=== PATIENT | male | born 1960 | race Caucasian/White ===

== ENCOUNTER 2017-09-20 08:00 | Day surgery (SDC) | payer BC ==
[~2017-09-20 08:00] MED LIST: CEFAZOLIN 2 GM/50 ML (PMX) 50 ML (FOR WT < 120 KG) IVPB; LACTATED RINGER'S 1,000 ML IV
[2017-09-20] MEDS ORDERED: PROPOFOL 20 ML (09:25)
[2017-09-20] MEDS ORDERED: LIDOCAINE 2% (SDV) 5 ML INJ (09:25)
[2017-09-20] MEDS ORDERED: CEFAZOLIN 1 GM INJ (09:25)
[2017-09-20] MEDS ORDERED: ONDANSETRON 4 MG INJ (09:25)
[2017-09-20] MEDS ORDERED: BUPIVACAINE 0.75%/DEXT (SPINAL) 2 ML INJ (09:26)
[2017-09-20] MEDS ORDERED: SOD CHLORIDE 0.9% 1,000 ML IV (10:05)
[2017-09-20] MEDS ORDERED: ROPIVACAINE 0.5 % 30 ML VIAL (10:09)
[2017-09-20] MEDS ORDERED: SENNA/DOCUSATE NA (8.6MG/50MG) TAB PO (10:30)
[2017-09-20] MEDS ORDERED: DOCUSATE SODIUM 100 MG CAP PO (10:30)
[2017-09-20] MEDS ORDERED: EPHEDrine SULFATE 50 MG/5 ML SYG IV (10:30)
[2017-09-20] MEDS ORDERED: ASPIRIN (EC) 325 MG TAB PO (10:30)
[2017-09-20] MEDS ORDERED: MAGNESIUM HYDROXIDE 30ML CUP PO (10:30)
[2017-09-20] MEDS ORDERED: METOCLOPRAMIDE 10 MG INJ IV (10:30)
[2017-09-20] MEDS ORDERED: BETHANECHOL 25 MG TAB PO (10:30)
[2017-09-20] MEDS ORDERED: BISACODYL 10 MG SUPP PR (10:30)
[2017-09-20] MEDS ORDERED: LABETALOL HCL 20MG INJ IV (10:30)
[2017-09-20] MEDS ORDERED: ONDANSETRON 4 MG INJ IV ×2 (10:30)
[2017-09-20] MEDS ORDERED: FENTAnyl 50 MCG/ML VIAL IV ×3 (10:30)
[2017-09-20] MEDS ORDERED: CEFAZOLIN 1 GM/50 ML (PMX) 50 ML IVPB (10:30)
[2017-09-20] MEDS ORDERED: DIPHENHYDRAMINE 50 MG INJ IV ×2 (10:30)
[2017-09-20] MEDS ORDERED: MEPERIDINE 25 MG INJ IV (10:30)
[2017-09-20] MEDS ORDERED: OXYCODONE/ACETAMINOPHEN (5/325) TAB PO ×2 (10:30)
[2017-09-20] MEDS ORDERED: MIDAZOLAM 1 MG/ML 2 ML INJ IV (10:30)
[2017-09-20] MEDS ORDERED: NALOXONE (0.4 MG/ML) INJ IV (10:30)
[2017-09-20] MEDS ORDERED: HYDROmorphONE 1 MG/5 ML IV SYRINGE IV ×3 (10:30)
[2017-09-20] MEDS ORDERED: oxyCODONE 5 MG TAB PO ×2 (10:30)
[2017-09-20] MEDS ORDERED: NA PHOSPHATE/BIPHOS 133 ML ENEMA PR (10:30)
[2017-09-20] MEDS ORDERED: hydrALAzine 20 MG INJ IV (10:30)
[2017-09-20] MEDS ORDERED: KETOROLAC 15 MG INJ IV (10:30)
[2017-09-20] MEDS: oxyCODONE 5 MG TAB PO (12:21)
[2017-09-20] MEDS: BACITRACIN 50000 UNITS INJ (13:46)
[2017-09-20] MEDS: POLYMYXIN B 500000 UNIT INJ (13:46)
[2017-09-20] MEDS: TRANEXAMIC ACID 1,000 MG in D5W 100 ML AT CLOSURE X1 IVPB (14:06)
[2017-09-20] MEDS: TRANEXAMIC ACID 1,000 MG in D5W 100 ML AT INCISION X1 IVPB (14:06)
[2017-09-20] MEDS ORDERED: CELECOXIB 100 MG CAP PO (21:00)
[2017-09-20] MEDS ORDERED: GABAPENTIN 100 MG CAP PO (21:00)
[2017-09-21] MEDS ORDERED: ASPIRIN (EC) 325 MG TAB PO (09:00)
[2017-09-21] MEDS ORDERED: FERROUS FUMARATE (SR) TAB PO (09:00)
[2017-09-21] MEDS ORDERED: DOCUSATE SODIUM 100 MG CAP PO (09:00)
[2017-09-22] MEDS ORDERED: PANTOPRAZOLE (EC) 40 MG TAB PO (06:00)
== END 2017-09-20 14:15 | disposition home or self-care (01) ==
LOC: SDS 08:00 → REC 14:15 → SDS 08:00 → REC 10:05
DX: M17.12 Unilateral primary osteoarthritis, left knee (principal); E78.5 Hyperlipidemia, unspecified; N40.0 Benign prostatic hyperplasia without lower urinary tract symptoms
CPT/HCPCS: 27446; 86850; 86900; 86901; 87081; 88304; 88311